=== PATIENT | male | born 1940 | race Caucasian/White ===

== ENCOUNTER 2019-05-24 18:27 | Emergency (ER) | payer MEDICARE, OTHER ==
[~2019-05-24] VITALS: Ht 175.3 cm; Wt 80.7 kg
[2019-05-24] MEDS ORDERED: ACET500C4 PO (18:49)
[2019-05-24] MEDS ORDERED: ALFU10TA PO (18:49)
[2019-05-24] MEDS ORDERED: ACET-637 PO (18:49)
[2019-05-24] MEDS ORDERED: ASPI-612 PO (18:50)
[2019-05-24] MEDS ORDERED: AMLO2.5T4 PO (18:50)
[2019-05-24] MEDS ORDERED: ATEN25TA PO (18:50)
[2019-05-24] MEDS ORDERED: OMEG-15 PO (18:53)
[2019-05-24] MEDS ORDERED: ETAN50PE3 (18:53)
[2019-05-24] MEDS ORDERED: ATOR80TA PO (18:53)
[2019-05-24] MEDS ORDERED: LISI40TA4 PO (18:54)
[2019-05-24] MEDS ORDERED: FOLI1TAB16 PO (18:54)
[2019-05-24] MEDS ORDERED: OMEP20CA15 PO (18:54)
[2019-05-24] MEDS ORDERED: NEOMY/BACITRA/POLYMYXIN B OINT UD PACKET TP ONE ×2 (19:15→19:24)
--- NOTE | 2019-05-24 19:16 | NUR ---
: MARY LOU at bedside MSE.
--- NOTE | 2019-05-24 19:27 | NUR ---
applied triple antx to the left eye brow .
--- NOTE | 2019-05-24 19:33 | NUR ---
applied ice pack to the left arm .xray at bedside for portable left hand xray .
--- NOTE | 2019-05-24 20:08 | NUR ---
patient went for CT of the head and cervival spine.
--- NOTE | 2019-05-24 20:24 | NUR ---
back from CT tolerated test.
--- NOTE | 2019-05-24 21:04 | NUR ---
DR: MARY LOU at bedside and informed patient left hand no fracture no dislocation .assessment done on the left hand good cms ,left hand colle splint in placed.
--- NOTE | 2019-05-24 21:17 | NUR ---
CJ BARRETO AT BEDSIDE explained xray results to patient and patients . for D/C.
--- NOTE | 2019-05-24 21:27 | NUR ---
Patient discharged to home in stable conditon. Written and verbal after care instructions given. Patient verbalizes understanding of instructions.V/S WNL .WENT HOME ESCORTED BY PATIENT ,WENT HOME WITH ALL BELONGINGS .
[2019-05-24 21:29] VITALS: BP 148/75
== END 2019-05-24 21:30 | disposition home or self-care (01) ==
LOC: ER 18:31
DX: S01.112A Laceration without foreign body of left eyelid and periocular area, initial encounter (principal); S60.222A Contusion of left hand, initial encounter; S80.211A Abrasion, right knee, initial encounter; E78.5 Hyperlipidemia, unspecified; M54.2 Cervicalgia; Z79.82 Long term (current) use of aspirin; Z79.899 Other long term (current) drug therapy; W01.198A Fall on same level from slipping, tripping and stumbling with subsequent striking against other object, initial encounter; Y93.89 Activity, other specified; Y92.89 Other specified places as the place of occurrence of the external cause; Y99.8 Other external cause status
CPT/HCPCS: 70450; 72125; 73130; A4663